=== PATIENT | female | born 1960 ===

== ENCOUNTER → 2017-12-07 | Outpatient (CLI) | payer OTHER ==
--- NOTE | 2017-12-07 15:55 | XR ---
EXAMINATION TYPE: XR chest 2V DATE OF EXAM: 12/07/2017 COMPARISON: 05/06/2016 HISTORY: Shortness of breath TECHNIQUE: Frontal and lateral views of the chest are obtained. FINDINGS: Scattered senescent parenchymal changes noted. Hyperinflation compatible with COPD. No evidence for infiltrate. No evidence for atelectasis. Heart size is stable. Mediastinal structures are stable and grossly unremarkable. No evidence for hilar prominence. Degenerative changes dorsal spine. Chronic loss of height involving a lower thoracic/upper lumbar seg ments. IMPRESSION: 1. No evidence for acute pulmonary disease.
--- NOTE | 2017-12-07 16:18 | CT ---
EXAMINATION TYPE: CT brain wo con DATE OF EXAM: 12/07/2017 COMPARISON: NONE HISTORY: Dizziness with near syncope. CT DLP: [address] of the brain was performed. The ventricles, basal cisterns and sulci overlying the cerebral convexities demonstrate mild enlargem ent. There is no evidence for intracranial hemorrhage or sulcal effacement. There is decreased attenuation about the periventricular white matter and deep white matter of both c erebral hemispheres, compatible with chronic small vessel ischemia. Differential diagnosis does inclu de demyelination. No mass effects are seen.No midline shift. Osseous calvarium is intact. Mild mucosal thickening maxillary sinuses. If symptoms persist consider MRI. IMPRESSION: 1. Age related atrophic and chronic small vessel ischemic change without acute intracranial process s een at this time.
--- NOTE | 2017-12-08 07:15 | US ---
EXAMINATION TYPE: US carotid duplex BILAT DATE OF EXAM: 12/07/2017 COMPARISON: NONE CLINICAL HISTORY: R55 Syncope,R07.89 Atypical chest pain; smoker x 45 years EXAM MEASUREMENTS: RIGHT: Peak Systolic Velocity (PSV) cm/sec ----- Right CCA: 64.5 ----- Right ICA: 85.5 ----- Right ECA: 41.4 ICA/CCA ratio: 1.3 RIGHT: End Diastole cm/sec ----- Right CCA: 31.5 ----- Right ICA: 43.6 ----- Right ECA: 16.1 LEFT: Peak Systolic Velocity (PSV) cm/sec ----- Left CCA: 52.2 ----- Left ICA: 64.8 ----- Left ECA: 53.3 ICA/CCA ratio: 1.2 LEFT: End Diastole cm/sec ----- Left CCA: 24.8 ----- Left ICA: 36.4 ----- Left ECA: 19.6 VERTEBRALS (direction of flow): Right Vertebral: Antegrade Left Vertebral: Antegrade Rhythm: Normal Very mild intimal wall thickening is noted at bilateral carotid bifurcation and PSV is wnl bilaterall y. IMPRESSION: Mild degree of grayscale atheromatous plaquing with no sonographically evident hemodynam ically significant stenosis within either visualized carotid arterial system.
== END | disposition home or self-care (01) ==
LOC: RADCTMAIN 15:33
PROVIDERS: ATTEND Family Medicine
DX: G31.9 Degenerative disease of nervous system, unspecified (principal); I67.82 Cerebral ischemia; J44.0 Chronic obstructive pulmonary disease with (acute) lower respiratory infection; I65.23 Occlusion and stenosis of bilateral carotid arteries
CPT/HCPCS: 70450; 71046; 93880

== ENCOUNTER → 2018-02-02 | Outpatient (CLI) | payer OTHER ==
--- NOTE | 2018-02-02 16:58 | BD ---
EXAMINATION TYPE: Axial Bone Density DATE OF EXAM: 02/02/2018 COMPARISON: 02.02.2016 CLINICAL HISTORY: 57 YR OLD FEMALE.....ICD-10 CODE: M81.0 OSTEOPOROSIS Height: 65.2 Weight: 122 FRAX RISK QUESTIONS: History of Fracture in Adulthood: YES, SPINE Secondary Osteoporosis: YES 3. Menopause before 45: YES AT AGE 34 Current Tobacco Use: YES RISK FACTORS HISTORY OF: Spine Fracture: COMPRESSION FX TO L1 >50 YRS OLD History of Wrist Fracture: RT FOREARM...UNDER AGE 49 Family History of Osteoporosis: YES, HER MOTHER W/O FX Active: YES Diet low in dairy products/other sources of calcium: NO Postmenopausal woman: TOTAL HYST AT 34 YRS OLD Lost more than 2 inches in height since high school: YES MEDICATIONS: Prednisone or other steroids: INHALERS ON AND OFF Osteoporosis Medications: RECLAST INFUSIONS X2 Additional Medications: CALCIUM WITH D, XANAX, Additional History: EARLY MENOPAUSE EXAM MEASUREMENTS: Bone mineral densitometry was performed using the PacerPro System. Bone mineral density about the R hip (g/cm2): 0.876 Bone mineral density about the L hip (g/cm2): 0.890 T Score values are as follows: -----R Neck: -1.9 -----L Neck: -2.1 -----R Total: -1.0 -----L Total: -0.9 Bone mineral density has: Increased 2.9% since study of: 02.02.2016 Bone mineral density about the L Wrist (g/cm2): 0.509 T Score values are as follows: -----Dist. R+U: -1.8 -----Prox. R+U: -1.4 -----Radius total: -2.6 Bone mineral density FIRST BONE DENSITY OF PTs LT WRIST FRAX%s: THERE IS A 15.1% CHANCE OF A MAJOR OSTEOPOROTIC FX AND A 3.8% FOR HIP FX.....PROBABILITY O F FX IN 10 YRS TIME IMPRESSION: Osteoporosis (T Score less than -2.5). There is increased fracture risk and therapy is usually indicated based on age. Re-Screen 1-2 years. NOTE: T-SCORE=SD OF THE YOUNG ADULT MEAN.
== END | disposition home or self-care (01) ==
LOC: RADBDWWP 12:14
PROVIDERS: ATTEND Family Medicine
DX: M81.0 Age-related osteoporosis without current pathological fracture (principal)
CPT/HCPCS: 77080

== ENCOUNTER → 2018-04-25 | Outpatient (CLI) | payer OTHER ==
--- NOTE | 2018-04-26 12:32 | MM ---
Reason for exam: screening (asymptomatic). Last mammogram was performed 3 years and 3 months ago. History: Patient is postmenopausal, has history of other cancer at age 37, and is nulliparous. Physical Findings: A clinical breast exam by your physician is recommended on an annual basis and results should be correlated with mammographic findings. MG Screening Mammo w CAD Bilateral CC and MLO view(s) were taken. Prior study comparison: January 27, 2015, bilateral MG screening mammo w CAD. November 14, 2013, bilateral MG screening mammo w CAD. The breast tissue is heterogeneously dense. This may lower the sensitivity of mammography. No suspicious abnormality. No significant changes when compared with prior studies. ASSESSMENT: Negative, BI-RAD 1 RECOMMENDATION: Routine screening mammogram of both breasts in 1 year.
== END | disposition home or self-care (01) ==
LOC: RADMAMWWP 12:39
PROVIDERS: ATTEND Family Medicine
DX: Z12.31 Encounter for screening mammogram for malignant neoplasm of breast (principal)
CPT/HCPCS: 77067

== ENCOUNTER → 2018-05-30 | Outpatient (CLI) | payer OTHER ==
[~2018-05-30] MED LIST: SODIUM CHLORIDE 0.9% 500 ML 500 ML in EMPTY BAG 1 BAG IV PRN; ZOLEDRONIC ACID 5 MG in SODIUM CHLORIDE 0.9% 100 ML IV NR
[2018-05-30 14:33] VITALS: BP 109/76; PULSE 76; RESP 16; TEMP 98
== END ==
LOC: PROCWHC3 14:10
PROVIDERS: ATTEND Family Medicine
DX: M81.0 Age-related osteoporosis without current pathological fracture (principal)
CPT/HCPCS: 96365; J3489

== ENCOUNTER → 2018-06-12 | Outpatient (CLI) | payer OTHER ==
--- NOTE | 2018-06-12 15:56 | XR ---
EXAMINATION TYPE: XR lumbosacral spine min 4V DATE OF EXAM: 06/12/2018 CLINICAL HISTORY: Pain 1 week after lifting injury TECHNIQUE: Frontal, lateral, and oblique images of the lumbar spine are obtained. COMPARISON: 03/20/2014 FINDINGS: There are 5 lumbar type vertebral bodies identified. The lumbar spine shows satisfactory alignment without evidence of acute fracture or spondylolisthesis. There is a compression deformity o f L1 with approximately 50% loss of anterior vertebral body height. No posterior wall displacement is evident. This appears old. Vertebral disk space heights are within normal limits. The oblique imag es appear within normal limits. No spondylolytic defects are evident. Spondylolysis of L5 3 and L4 is present. IMPRESSION: 1. No acute osseous abnormality lumbar spine there is an old L1 compression deformity which is stable from 2013.
== END | disposition home or self-care (01) ==
LOC: RADXRMAIN 15:24
PROVIDERS: ATTEND Family Medicine
DX: M43.8X6 Other specified deforming dorsopathies, lumbar region (principal); M54.5 Low back pain
CPT/HCPCS: 72110

== ENCOUNTER → 2019-06-03 | Outpatient (CLI) | payer OTHER ==
--- NOTE | 2019-06-04 11:14 | MM ---
Reason for exam: screening (asymptomatic). Last mammogram was performed 1 year and 1 month ago. History: Patient is postmenopausal, has history of other cancer at age 37, and is nulliparous. Physical Findings: A clinical breast exam by your physician is recommended on an annual basis and results should be correlated with mammographic findings. MG Screening Mammo w CAD Bilateral CC and MLO view(s) were taken. Prior study comparison: April 25, 2018, bilateral MG screening mammo w CAD. January 27, 2015, bilateral MG screening mammo w CAD. The breast tissue is heterogeneously dense. This may lower the sensitivity of mammography. There are benign appearing round calcifications in the right breast. There is no discrete abnormality. ASSESSMENT: Benign, BI-RAD 2 RECOMMENDATION: Routine screening mammogram of both breasts in 1 year.
== END | disposition home or self-care (01) ==
LOC: RADMAMWWP 12:33
PROVIDERS: ATTEND Family Medicine
DX: Z12.31 Encounter for screening mammogram for malignant neoplasm of breast (principal)
CPT/HCPCS: 77067

== ENCOUNTER → 2019-12-06 | Outpatient (CLI) | payer OTHER ==
--- NOTE | 2019-12-06 12:30 | XR ---
EXAMINATION TYPE: XR chest 2V DATE OF EXAM: 12/06/2019 COMPARISON: Chest x-ray December 07, 2017. CT chest November 05, 2013. HISTORY: Fall injury with atypical chest pain. TECHNIQUE: Frontal and lateral views of the chest are obtained. FINDINGS: There is underlying emphysematous change without suspicious focal air space opacity, pleur al effusion, or pneumothorax seen. The cardiac silhouette size remains within normal limits. Mild to moderate multilevel spurring in the mid to lower thoracic spine is redemonstrated. Mild chronic comp ression type fracture L1 level redemonstrated. IMPRESSION: Chronic emphysematous change without acute pulmonary process.
== END | disposition home or self-care (01) ==
LOC: RADXRMAIN 12:08
PROVIDERS: ATTEND Family Medicine
DX: Z00.00 Encounter for general adult medical examination without abnormal findings (principal); J43.9 Emphysema, unspecified; R07.89 Other chest pain
CPT/HCPCS: 71046

== ENCOUNTER → 2019-12-27 | Outpatient (CLI) | payer OTHER ==
--- NOTE | 2019-12-27 14:18 | US ---
EXAMINATION TYPE: US carotid duplex BILAT DATE OF EXAM: 12/27/2019 COMPARISON: US 12/07/2017 CLINICAL HISTORY: R55 Syncope. EXAM MEASUREMENTS: RIGHT: Peak Systolic Velocity (PSV) cm/sec ----- Right CCA: 77.5 ----- Right ICA: 107 ----- Right ECA: 53.0 ICA/CCA ratio: 1.3 RIGHT: End Diastole cm/sec ----- Right CCA: 30.6 ----- Right ICA: 36.7 ----- Right ECA: 53.0 LEFT: Peak Systolic Velocity (PSV) cm/sec ----- Left CCA: 85.6 ----- Left ICA: 80.2 ----- Left ECA: 76.8 ICA/CCA ratio: 0.9 LEFT: End Diastole cm/sec ----- Left CCA: 33.3 ----- Left ICA: 36.0 ----- Left ECA: 20.4 VERTEBRALS (direction of flow): Right Vertebral: Antegrade Left Vertebral: Antegrade Rhythm: Normal Minimal amount of plaque visualized bilaterally. No elevated velocities, no significant stenosis. IMPRESSION: 1. No suspicious flow-limiting stenosis by velocity measurements. Criteria for Assigning % of Stenosis / Diameter reduction (Estimation based on the indirect measurements of the internal carotid artery velocities (ICA PSV). 1. Normal (no stenosis)=ICA PSV < 125 cm/s: ratio < 2.0: ICA EDV<40 cm/s. 2. Less than 50% stenosis=ICA PSV < 125 cm/s: ratio < 2.0: ICA EDV<40 cm/s. 3. 50 to 69% stenosis=ICA PSV of 125 to 230 cm/s: ration 2.0 ? 4.0: ICA EDV 40-100 cm/s. 4. Greater than 70% stenosis to near occlusion= ICA PSV > 230 cm/s: ratio > 4.0: ICA EDV > 100 cm/s. 5. Near occlusion= ICA PSV velocities may be low or undetectable: variable ratio and ICA EDV. 6. Total occlusion=unable to detect flow.
== END | disposition home or self-care (01) ==
LOC: RADUSWWP 12:56
PROVIDERS: ATTEND Family Medicine
DX: R55 Syncope and collapse (principal); Z88.8 Allergy status to other drugs, medicaments and biological substances
CPT/HCPCS: 93880

== ENCOUNTER → 2020-01-01 | Outpatient (CLI) | payer OTHER ==
--- NOTE | 2020-01-01 16:00 | ECHOF ---
Referral Reason:R07.9 atypical chest pain MEASUREMENTS -------- HEIGHT: 167.6 cm WEIGHT: 54.4 kg BP: IVSd: 0.9 cm (0.6 - 1.1) LVIDd: 2.7 cm (3.9 - 5.3) LVPWd: 0.9 cm (0.6 - 1.1) IVSs: 1.2 cm LVIDs: 1.8 cm LVPWs: 1.3 cm LAESV Index (A-L): 12.12 ml/m Ao Diam: 3.2 cm (2.0 - 3.7) AV Cusp: 1.7 cm (1.5 - 2.6) MV E Ja: 0.95 m/s MV DecT: 216 ms MV A Ja: 0.56 m/s MV E/A Ratio: 1.69 RAP: 5.00 mmHg RVSP: 16.76 mmHg FINDINGS -------- Sinus rhythm. This was a technically difficult study with suboptimal parasternal views. The left ventricular size is normal. Left ventricular wall thickness is normal. Overall left vent ricular systolic function is normal with, an EF between 55 - 60 %. The diastolic filling pattern is normal for the age of the patient 11.19. The right ventricle is normal in size. Normal LA size by volume 22+/-6 ml/m2. The right atrial size is normal. Interatrial and interventricular septum intact. The aortic valve was not well visualized. There is no evidence of aortic regurgitation. There is no evidence of aortic stenosis. There is trace mitral regurgitation. Trace tricuspid regurgitation present. There is no evidence of pulmonary hypertension. The right ventricular systolic pressure, as measured by Doppler, is 16.76mmHg. Trace/mild (physiologic) pulmonic regurgitation. The aortic root size is normal. Normal inferior vena cava with normal inspiratory collapse consistent with estimated right atrial pre ssure of 5 mmHg. There is no pericardial effusion. CONCLUSIONS -------- 1. Sinus rhythm. 2. This was a technically difficult study with suboptimal parasternal views. 3. The left ventricular size is normal. 4. Left ventricular wall thickness is normal. 5. Overall left ventricular systolic function is normal with, an EF between 55 - 60 %. 6. The diastolic filling pattern is normal for the age of the patient 11.19 7. The right ventricle is normal in size. 8. Normal LA size by volume 22+/-6 ml/m2. 9. The right atrial size is normal. 10. Interatrial and interventricular septum intact. 11. The aortic valve was not well visualized. 12. There is no evidence of aortic regurgitation. 13. There is no evidence of aortic stenosis. 14. There is trace mitral regurgitation. 15. Trace tricuspid regurgitation present. 16. There is no evidence of pulmonary hypertension. 17. The right ventricular systolic pressure, as measured by Doppler, is 16.76mmHg. 18. Trace/mild (physiologic) pulmonic regurgitation. 19. The aortic root size is normal. 20. Normal inferior vena cava with normal inspiratory collapse consistent with estimated right atrial pressure of 5 mmHg. 21. There is no pericardial effusion. PROVER: Mary Quinn RDCS
--- NOTE | 2020-01-01 16:34 | EST ---
EXERCISE STRESS AGE: 59 SEX: Female HT: 5'6" WT: 120 lbs. PROTOCOL: Lito STAGE: 3 DURATION OF EXERCISE: 7:30 HEART RATE REST: 68 BLOOD PRESSURE REST: 127/77 MAXIMUM HEART RATE ACHIEVED: 144 MAXIMUM BLOOD PRESSURE: 194/100 85% MPHR: 136 100% MPHR: 160 METS: 9.1 INDICATIONS: Chest pain. CLINICAL INFORMATION: STRESS DATA: Heart rate 68, pressure 127/77 mmHg. Baseline EKG showed sinus mechanism. The patient exercised on the treadmill according to Lito protocol for a total of 7 minutes and 30 seconds and achieved 9.1 METS. Max heart rate was 144, which is about 90% of maximum predicted heart rate. Maximum blood pressure was 194/100 mmHg. Clinically the patient did not have any symptoms of chest pain or chest discomfort and the EKG did not show any significant ST or T-wave abnormalities concerning for ischemia. CONCLUSION: 1. Good exercise tolerance. 2. Normal EKG in response to exercise. MMODL / IJN: [id number] /
== END | disposition home or self-care (01) ==
LOC: RADECHMAIN 08:31
PROVIDERS: ATTEND Family Medicine
DX: I08.1 Rheumatic disorders of both mitral and tricuspid valves (principal); R07.9 Chest pain, unspecified; Z88.8 Allergy status to other drugs, medicaments and biological substances
CPT/HCPCS: 93017; 93306

== ENCOUNTER → 2020-08-14 | Outpatient (CLI) | payer OTHER ==
--- NOTE | 2020-08-18 13:27 | MM ---
Reason for exam: screening (asymptomatic). Last mammogram was performed 1 year and 2 months ago. History: Patient is postmenopausal, has history of other cancer at age 37, and is nulliparous. Physical Findings: A clinical breast exam by your physician is recommended on an annual basis and results should be correlated with mammographic findings. MG Screening Mammo w CAD Bilateral CC and MLO view(s) were taken. Prior study comparison: June 03, 2019, bilateral MG screening mammo w CAD. April 25, 2018, bilateral MG screening mammo w CAD. The breast tissue is heterogeneously dense. This may lower the sensitivity of mammography. Benign oil cyst calcification on the right breast. No significant changes when compared with prior studies. ASSESSMENT: Benign, BI-RAD 2 RECOMMENDATION: Routine screening mammogram of both breasts in 1 year.
== END | disposition home or self-care (01) ==
LOC: RADMAMWWP 14:51
PROVIDERS: ATTEND Family Medicine
DX: Z12.31 Encounter for screening mammogram for malignant neoplasm of breast (principal)
CPT/HCPCS: 77067

== ENCOUNTER → 2021-08-13 | Outpatient (CLI) | payer OTHER ==
[2021-08-15 11:23] LABS: Coronavirus SARS CoV-2 Not Detected (Not Detected)
== END | disposition home or self-care (01) ==
LOC: LABPAT 10:33
PROVIDERS: ATTEND Surgery Plastic and Reconstructive Surgery
DX: Z20.822 Contact with and (suspected) exposure to COVID-19 (principal)
CPT/HCPCS: U0003; C9803; U0005

== ENCOUNTER 2021-08-18 08:53 | Day surgery (SDC) | payer OTHER ==
[2021-08-13 15:32] VITALS: BMI 18.6
[2021-08-18 09:15] VITALS: RESP 18; TEMP 98.1
--- NOTE | 2021-08-18 09:29 | P.GSHP ---
History of Present Illness H&P Date: 08/18/21 CHIEF COMPLAINT: Colon screen HISTORY OF PRESENT ILLNESS: The patient is a 60-year-old female who presents for colon screen. Lower endoscopy was offered for further evaluation and management. PAST MEDICAL HISTORY: Please see list. PAST SURGICAL HISTORY: Please see list. MEDICATIONS: Please see list. ALLERGIES: Please see list. SOCIAL HISTORY: No illicit drug use FAMILY HISTORY: No reports of Crohn disease or ulcerative colitis. REVIEW OF ORGAN SYSTEMS: CONSTITUTIONAL: No reports of fevers or chills. PHYSICAL EXAM: VITAL SIGNS: Stable GENERAL: Well-developed pleasant in no acute distress. HEENT: No scleral icterus. Extraocular movements grossly intact. Moist buccal mucosa. NECK: Supple without lymphadenopathy. CHEST: Unlabored respirations. Equal bilateral excursions. CARDIOVASCULAR: Regular rate and rhythm. Distal 2+ pulses. ABDOMEN: Soft, nontender, nondistended. MUSCULOSKELETAL: No clubbing, cyanosis, or edema. ASSESSMENT: 1. Colon screen. PLAN: 1. Recommend proceeding with a lower endoscopy Past Medical History Past Medical History: Cancer, COPD, Osteoarthritis (OA) Additional Past Medical History / Comment(s): OSTEOPOROSIS. RIGHT ARM GANGRENE YEARS AGO FROM "TIGHT CAST" AFTER COMPOUND FRACTURE. frequent "upset stomach" ,hx H PYLORI, hx cervical cancer History of Any Multi-Drug Resistant Organisms: None Reported Past Surgical History: Hysterectomy, Orthopedic Surgery Additional Past Surgical History / Comment(s): BACK INJECTIONS., MULT RIGHT FOREARM SURGERIES, rt cataract Past Anesthesia/Blood Transfusion Reactions: No Reported Reaction Smoking Status: Current every day smoker - Past Family History Mother Family Medical History: No Reported History Medications and Allergies Home Medications Medication Instructions Recorded Confirmed Type ALPRAZolam [Xanax] 0.25 mg PO HS PRN 08/13/21 08/18/21 History HYDROcodone/APAP 5-325MG [[place] 1 tab PO DAILY PRN 08/13/21 08/18/21 History 5-325] Vit C/E/Zn/Coppr/Lutein/Zeaxan 2 each PO DAILY 08/13/21 08/18/21 History [Preservision Areds 2 Softgel] Vitamin C/Biotin [Hair, Skin and 1 tab PO DAILY 08/13/21 08/18/21 History Nails Chew] Allergies Allergy/AdvReac Type Severity Reaction Status Date / Time codeine AdvReac Nausea Verified 08/18/21 09:18 Surgical - Exam Vital Signs Temp Pulse Resp BP Pulse Ox 98.1 F 78 18 122/72 97 08/18/21 09:12 08/18/21 09:12 08/18/21 09:12 08/18/21 09:12 08/18/21 09:12
[2021-08-18] MEDS ORDERED: LACTATED RINGERS 1,000 ML IV ONE (09:31)
[2021-08-18] MEDS ORDERED: LIDOCAINE 1% (10MG/ML) FOR IV START INTRADERMA ONE (09:31)
[2021-08-18] MEDS ORDERED: PROPOFOL 10 MG/ML 20 ML VIAL IV ONE (10:14)
[2021-08-18] MEDS ORDERED: LIDOCAINE 1% INJ 10MG/ML (20 ML MDV) ONE (10:14)
--- NOTE | 2021-08-18 10:42 | P.PCN ---
Date of Procedure: 08/18/21 Description of Procedure: PREOPERATIVE DIAGNOSIS: Colonoscopy screening POSTOPERATIVE DIAGNOSIS: Tubular adenoma sigmoid colon, 6 Sigmoid diverticulosis OPERATION: Colonoscopy to the ileocecal valve and appendiceal orifice, cecum Colonoscopy with cold forceps biopsy SURGEON: Dinorah Calderon MD. ANESTHESIA: MAC. INDICATIONS: The patient is an 60-year-old female who presents for colonoscopy screening. Benefits and risks were described and informed consent was obtained. DESCRIPTION OF PROCEDURE: The patient had undergone Sutab prep. The patient had been brought into the operating room and laid in the left lateral decubitus position. After adequate intravenous sedation, the rectum was examined with 2% lidocaine jelly. External hemorrhoids were encountered. The rectal tone was within normal limits. No lesions were palpated in the rectal vault. An Olympus colonoscope was advanced until the cecum, ileocecal valve and appendiceal orifice were clearly viewed. The prep was good. Sigmoid diverticulosis was encountered. The sigmoid colon was redundant requiring abdominal wall pressure. Colonic polyps were found and removed. No evidence of focal colitis was found. Retroflexion of the scope demonstrated grade 1 internal hemorrhoids without active bleeding or inflammation. The colon was desufflated. The patient had tolerated the procedure well. Withdrawal time was over 6 minutes. FINDINGS: Aronchick preparation quality scale 2 (1-5) Internal hemorrhoids, grade 1 No external hemorrhoids No arteriovenous malformations. Sigmoid diverticulosis Removal of 6 polyps: - Cold forceps biopsy at 15 to 20 cm from the anal verge 6, 3 to 6 mm polyps, sigmoid colon No focal colitis. RECOMMENDATIONS: Given severity of tubular adenomas, recommend repeat colonoscopy 2 years, 2023 Plan - Discharge Summary New Discharge Prescriptions: Continue HYDROcodone/APAP 5-325MG [[place] 5-325] 1 tab PO DAILY PRN PRN Reason: Pain ALPRAZolam [Xanax] 0.25 mg PO HS PRN PRN Reason: sleep Vit C/E/Zn/Coppr/Lutein/Zeaxan [Preservision Areds 2 Softgel] 2 each PO DAILY Vitamin C/Biotin [Hair, Skin and Nails Chew] 1 tab PO DAILY Discharge Medication List ALPRAZolam [Xanax] 0.25 mg PO HS PRN 08/13/21 [History] HYDROcodone/APAP 5-325MG [[place] 5-325] 1 tab PO DAILY PRN 08/13/21 [History] Vit C/E/Zn/Coppr/Lutein/Zeaxan [Preservision Areds 2 Softgel] 2 each PO DAILY 08/13/21 [History] Vitamin C/Biotin [Hair, Skin and Nails Chew] 1 tab PO DAILY 08/13/21 [History] Follow up Appointment(s)/Referral(s): Dinorah Calderon MD [STAFF PHYSICIAN] - As Needed Patient Instructions/Handouts: Diverticulosis Diet (GEN), Diverticulosis (DC), Colorectal Polyps (DC), *Surgery [facility] - (Anesthesia) Endoscopy Discharge Instructions Activity/Diet/Wound Care/Special Instructions: Repeat colonoscopy in 2 years, 2023 Discharge Disposition: HOME SELF-CARE
[2021-08-18 11:08] VITALS: BP 111/67; PULSE 71
== END 2021-08-18 11:11 | disposition home or self-care (01) ==
LOC: ORWHC2ENDO 08:53
PROVIDERS: ATTEND Surgery Plastic and Reconstructive Surgery
DX: Z12.11 Encounter for screening for malignant neoplasm of colon (principal); K63.5 Polyp of colon; K57.30 Diverticulosis of large intestine without perforation or abscess without bleeding; K64.4 Residual hemorrhoidal skin tags; Q43.8 Other specified congenital malformations of intestine; K64.0 First degree hemorrhoids; J44.9 Chronic obstructive pulmonary disease, unspecified; M19.90 Unspecified osteoarthritis, unspecified site; M81.0 Age-related osteoporosis without current pathological fracture; Z85.41 Personal history of malignant neoplasm of cervix uteri; Z90.710 Acquired absence of both cervix and uterus; Z98.41 Cataract extraction status, right eye; Z98.890 Other specified postprocedural states; F17.200 Nicotine dependence, unspecified, uncomplicated; F41.9 Anxiety disorder, unspecified; Z97.2 Presence of dental prosthetic device (complete) (partial); Z79.899 Other long term (current) drug therapy; Z88.5 Allergy status to narcotic agent
CPT/HCPCS: 88305; 45380; J2001; J2704

== ENCOUNTER → 2022-03-03 | Outpatient (CLI) | payer BC ==
--- NOTE | 2022-03-04 15:41 | BD ---
EXAMINATION TYPE: Axial Bone Density DATE OF EXAM: 03/03/2022 COMPARISON: NONE CLINICAL HISTORY: 61 years year old Female. ICD-10 CODE: M81.0 osteoporosis Height: 65 Weight: 117.3 FRAX RISK QUESTIONS: Alcohol (3 or more units per day): YES Family History (Parent hip fracture): FATHER Glucocorticoids (More than 3mos): NO History of Fracture in Adulthood: LUMBAR SPINE Secondary Osteoporosis: 1. Type 1 Diabetes: NO 2. Hyperthyroidism: NO 3. Menopause before 45: YES 4. Malnutrition: NO 5. Chronic liver disease: NO Rheumatoid Arthritis: NO Current Tobacco Use: YES RISK FACTORS HISTORY OF: Hip Fracture (Right/Left): NO Spine Fracture: YES L1 When: 2014 History of Wrist Fracture: NO Surgery to Spine/Hip(right/left)/Wrist (right/left): NO Family History of Osteoporosis: MOTHER Active: YES Diet low in dairy products/other sources of calcium: NO Postmenopausal woman: YES Take estrogen and/or progesterone medications: NO Lost more than 2 inches in height since high school: YES Frequent falls: NO Poor Health: NO Hyperparathyroidism: NO Adrenal Insufficiency: NO MEDICATIONS: Prednisone or other steroids: NO Thyroid Medications: NO Osteoporosis Medications: NO Additional Medications: BIO TEN, EXAM MEASUREMENTS: Bone mineral density about the R hip (g/cm2): 0.820 Bone mineral density about the L hip (g/cm2): 0.799 T Score values are as follows: -----R Neck: -1.6 -----L Neck: -1.7 -----R Total: -1.0 -----L Total: -0.9 Bone mineral density has: INCREASED 0.9 % since study of: 02/02/2018 Bone mineral density about the L Wrist (g/cm2): 0.355 T Score values are as follows: -----Dist. R+U: -2.4 -----Prox. R+U: -1.5 -----Radius total: -2.3 Bone mineral density has: DECREASED 0.4 % since study of: 02/02/2018 FRAX%s: The graph provided illustrates a 16.8% chance for a major osteoporotic fx and a 4.3% chance f or the hips probability for fx in 10 years time. IMPRESSION: Osteopenia (T Score between -2.5 and -1). There is slightly increased risk of fracture and the patient may be considered for treatment. Re-Screen 2-5 years. NOTE: T-SCORE=SD OF THE YOUNG ADULT MEAN.
== END | disposition home or self-care (01) ==
LOC: RADBDWWP 15:06
PROVIDERS: ATTEND Family Medicine
DX: M85.89 Other specified disorders of bone density and structure, multiple sites (principal); Z78.0 Asymptomatic menopausal state
CPT/HCPCS: 77080

== ENCOUNTER 2022-05-09 08:15 | Day surgery (SDC) | payer BC ==
[2022-05-05 11:11] VITALS: BMI 19.3
--- NOTE | 2022-05-09 05:02 | P.GSHP ---
History of Present Illness H&P Date: 05/09/22 CHIEF COMPLAINT: GERD HISTORY OF PRESENT ILLNESS: The patient is a 61-year-old female who presents reports gastroesophageal reflux disease. Upper endoscopy was offered for further evaluation and management. PAST MEDICAL HISTORY: Please see list. PAST SURGICAL HISTORY: Please see list. MEDICATIONS: Please see list. ALLERGIES: Please see list. SOCIAL HISTORY: No illicit drug use FAMILY HISTORY: No reports of Crohn disease or ulcerative colitis. REVIEW OF ORGAN SYSTEMS: CONSTITUTIONAL: No reports of fevers or chills. GI: Denies any blood in stools or constipation. PHYSICAL EXAM: VITAL SIGNS: Stable GENERAL: Well-developed and pleasant in no acute distress. HEENT: No scleral icterus. Extraocular movements grossly intact. Moist buccal mucosa. NECK: Supple without lymphadenopathy. CHEST: Unlabored respirations. Equal bilateral excursions. CARDIOVASCULAR: Regular rate and rhythm. Distal 2+ pulses. ABDOMEN: Soft, nondistended. MUSCULOSKELETAL: No clubbing, cyanosis, or edema. ASSESSMENT: 1. Gastroesophageal reflux disease PLAN: 1. Recommend proceeding with an upper endoscopy Past Medical History Additional Past Medical History / Comment(s): having "alot of stomach issues in am",OSTEOPOROSIS. RIGHT ARM GANGRENE YEARS AGO FROM "TIGHT CAST" AFTER COMPOUND FRACTURE. H PYLORI,diverticulosis,6 colon polyps,back fx History of Any Multi-Drug Resistant Organisms: None Reported Past Surgical History: Hysterectomy, Orthopedic Surgery Additional Past Surgical History / Comment(s): BACK INJECTIONS. at ages 10-14 MULT RIGHT FOREARM SURGERIES w/ skin grafts(greater than 50 surgeries) w/ nerve transplant Past Anesthesia/Blood Transfusion Reactions: No Reported Reaction Smoking Status: Current every day smoker - Past Family History Mother Family Medical History: No Reported History Medications and Allergies Home Medications Medication Instructions Recorded Confirmed Type ALPRAZolam [Xanax] 0.125 mg PO DAILY PRN 08/13/21 05/05/22 History HYDROcodone/APAP 5-325MG [[place] 1 tab PO DAILY PRN 08/13/21 05/05/22 History 5-325] Vit C/E/Zn/Coppr/Lutein/Zeaxan 2 each PO DAILY 08/13/21 05/05/22 History [Preservision Areds 2 Softgel] Vitamin C/Biotin [Hair, Skin and 1 tab PO DAILY 08/13/21 05/05/22 History Nails Chew] Allergies Allergy/AdvReac Type Severity Reaction Status Date / Time codeine AdvReac Nausea Verified 05/05/22 11:00
[~2022-05-09 08:15] MED LIST changes: +LACTATED RINGERS 1,000 ML IV SCH; -SODIUM CHLORIDE 0.9% 500 ML 500 ML in EMPTY BAG 1 BAG IV PRN; -ZOLEDRONIC ACID 5 MG in SODIUM CHLORIDE 0.9% 100 ML IV NR
[2022-05-09 09:06] VITALS: TEMP 97
[2022-05-09] MEDS ORDERED: PROPOFOL 10 MG/ML 20 ML VIAL IV ONE (09:06)
[2022-05-09 09:24] VITALS: RESP 18
--- NOTE | 2022-05-09 09:24 | P.PCN ---
Date of Procedure: 05/09/22 Description of Procedure: PREOPERATIVE DIAGNOSIS: Gastroesophageal reflux disease. Epigastric abdominal pain POSTOPERATIVE DIAGNOSIS: Gastroesophageal reflux disease. Gastritis. Diaphragmatic hiatal hernia Duodenal polyp Gastric ulcer OPERATION: Esophagogastroduodenoscopy with biopsies along antrum. SURGEON: Dinorah Calderon MD ANESTHESIA: MAC. INDICATIONS: The patient is a 61-year-old female who presents with reflux disease. Benefits and risks of the procedure were described. Informed consent was obtained. DESCRIPTION: The patient was brought into the endoscopy suite and laid in the left lateral decubitus position. An Olympus gastroscope was passed along the posterior oropharynx down to the distal esophagus where the squamocolumnar junction was encountered at 40 cm from the incisors. The stomach was entered and no bile reflux was found. Additional findings are listed below. Biopsies with cold forceps were obtained of the antrum. The first through third portion of the duodenum was examined. Retroflexion of the scope confirmed Hill grade 4 lower esophageal valve. The squamocolumnar junction demonstrated LA grade B erosive esophagitis. The stomach was desufflated. The patient tolerated the procedure well. FINDINGS: Squamocolumnar junction 40 cm from the incisors. Diaphragmatic hiatus at 40 cm. Hill grade 4 lower esophageal valve. LA grade B erosive esophagitis. Duodenal polyp, 1 cm at second portion the biopsies obtained Chronic gastritis with gastric ulcer, nonbleeding RECOMMENDATIONS: Upper endoscopy as needed. Plan - Discharge Summary Discharge Rx Participant: No New Discharge Prescriptions: Continue HYDROcodone/APAP 5-325MG [Galva 5-325] 1 tab PO DAILY PRN PRN Reason: Pain ALPRAZolam [Xanax] 0.125 mg PO DAILY PRN PRN Reason: sleep Vit C/E/Zn/Coppr/Lutein/Zeaxan [Preservision Areds 2 Softgel] 2 each PO DAILY Vitamin C/Biotin [Hair, Skin and Nails Chew] 1 tab PO DAILY Discharge Medication List ALPRAZolam [Xanax] 0.125 mg PO DAILY PRN 08/13/21 [History] HYDROcodone/APAP 5-325MG [Galva 5-325] 1 tab PO DAILY PRN 08/13/21 [History] Vit C/E/Zn/Coppr/Lutein/Zeaxan [Preservision Areds 2 Softgel] 2 each PO DAILY 08/13/21 [History] Vitamin C/Biotin [Hair, Skin and Nails Chew] 1 tab PO DAILY 08/13/21 [History] Follow up Appointment(s)/Referral(s): Dinorah Calderon MD [STAFF PHYSICIAN] - 05/17/22 Patient Instructions/Handouts: Hiatal Hernia (DC) Discharge Disposition: HOME SELF-CARE
[2022-05-09 09:50] VITALS: BP 92/57; PULSE 72
== END 2022-05-09 10:00 | disposition home or self-care (01) ==
LOC: ORWHC2ENDO 08:15
PROVIDERS: ATTEND Surgery Plastic and Reconstructive Surgery
DX: K29.50 Unspecified chronic gastritis without bleeding (principal); K21.00 Gastro-esophageal reflux disease with esophagitis, without bleeding; F17.200 Nicotine dependence, unspecified, uncomplicated; K25.9 Gastric ulcer, unspecified as acute or chronic, without hemorrhage or perforation; K44.9 Diaphragmatic hernia without obstruction or gangrene; K31.A11 Gastric intestinal metaplasia without dysplasia, involving the antrum
CPT/HCPCS: 88305; 43239; J2704

== ENCOUNTER → 2022-06-08 | Outpatient (CLI) | payer BC ==
[2022-06-08 16:06] LABS: ALT 20 U/L (8-44); AST 23 U/L (13-35); African American GFR (CKD) 91.6 (60.0-200.0); Albumin 4.7 g/dL (3.8-4.9); Albumin/Globulin Ratio 2.04 (1.60-3.17); Alkaline Phosphatase 63 U/L (41-126); BUN/Creat Ratio 25.38 Ratio (12.00-20.00); Blood Urea Nitrogen 20.3 mg/dL (9.0-27.0); Carbon Dioxide 26.5 mmol/L (20.0-27.5); Chloride 104 mmol/L (96-109); Chol/HDL Ratio 2.96 Ratio; Globulin 2.3 g/dL (1.6-3.3); Glucose 98 mg/dL (70-110); LDL Cholesterol,Calculated 132.5 mg/dL (0.0-131.0); Potassium 4.2 mmol/L (3.5-5.5); Sodium 141 mmol/L (135-145)
[2022-06-08 18:17] LABS: Basophils # (A) 0.07 X 10*3/uL (0.00-0.10); Basophils % (A) 0.8 %; Eosinophils # (A) 0.53 X 10*3/uL (0.04-0.35); Eosinophils % (A) 6.3 %; HCT 43.8 % (37.2-46.3); HGB 14.8 g/dL (12.0-15.0); Immature Grans, Automated 0.2 %; Lymphocytes # (A) 3.26 X 10*3/uL (0.90-5.00); Lymphocytes % (A) 38.7 %; MCH 31.2 pg (27.0-32.0); MCHC 33.8 g/dL (32.0-37.0); MCV 92.2 fL (80.0-97.0); Mean Platelet Volume 11.1 fL (9.5-12.2); Monocytes # (A) 0.72 X 10*3/uL (0.20-1.00); Monocytes % (A) 8.5 %; NRBC Per 100 WBC 0 /100 WBCS (0.0-0.0); Neutrophils # (A) 3.83 X 10*3/uL (1.80-7.70); Neutrophils % (A) 45.5 %; Platelet Count 246 X 10*3/uL (140-440); RBC 4.75 X 10*6/uL (4.10-5.20); RDW 13.3 % (11.5-14.5); WBC 8.43 X 10*3/uL (4.50-10.00)
== END | disposition home or self-care (01) ==
LOC: LABWHC1 09:05
PROVIDERS: ATTEND Family Medicine
DX: J44.9 Chronic obstructive pulmonary disease, unspecified (principal); E55.9 Vitamin D deficiency, unspecified; E78.5 Hyperlipidemia, unspecified; R73.9 Hyperglycemia, unspecified
CPT/HCPCS: 36415; 80053; 80061; 82306; 83036; 84439; 84443; 85025; 85379

== ENCOUNTER → 2023-08-04 | Outpatient (CLI) | payer BC ==
--- NOTE | 2023-08-04 16:32 | XR ---
EXAMINATION TYPE: XR chest 2V DATE OF EXAM: 08/04/2023 COMPARISON: 12/06/2019 HISTORY: 62-year-old female J44.9 CHRONIC OBSTRUCTIVE PULMONARY DISEASE, UNSPE TECHNIQUE: Frontal and lateral views FINDINGS: The cardiomediastinal silhouette and aorta are within normal limits. Unchanged asymmetric prominence to the left main pulmonary artery. Findings may reflect underlying pulmonary arterial hypertension. T here is hyperinflation. Lungs and pleural spaces are clear. IMPRESSION: COPD. No acute process seen.
== END | disposition home or self-care (01) ==
LOC: RADXRMAIN 15:10
PROVIDERS: ATTEND Family Medicine
DX: J44.9 Chronic obstructive pulmonary disease, unspecified (principal)
CPT/HCPCS: 71046

== ENCOUNTER → 2023-08-30 | Outpatient (CLI) | payer SELFPAY ==
--- NOTE | 2023-08-30 09:21 | CT ---
EXAMINATION TYPE: CT chest w con DATE OF EXAM: 08/30/2023 COMPARISON: Radiograph to 08/04/2023 HISTORY: 62-year-old female J44.9, COPD, chest discomfort, difficulty breathing, family hx of lung ca ncer TECHNIQUE: Contiguous axial scanning of the chest after the administration of 100 mL of Isovue 300. Coronal/sagittal reconstructions performed. CT DLP: 164.1mGycm. Automatic exposure control utilized for a dose reduction. FINDINGS: Heart is normal size without pericardial effusion. Borderline ectasia ascending aorta 3.6 cm increased from 2.8 cm, previously. Conventional arch vessel branching anatomy. Mildly tortuous descending thoracic aorta. No thoracic lymphadenopathy by CT size criteria. Small 6 mm hypodense nodule right lobe of thyroid gland, questionable clinical significance. There is moderate to advanced centrilobular emphysema. Biapical pleural-parenchymal scarring. Some ad ditional strandy scarring at the right base. No consolidation or pleural effusion. Visualized upper abdomen shows no gross adenopathy. Bones: Accentuated lower thoracic kyphosis with mild to moderate degenerative disc disease. There is breathing motion causing offsets along the sternal cortex. IMPRESSION: COPD with moderate to advanced emphysema. No acute pulmonary process.
== END | disposition home or self-care (01) ==
LOC: RADCTMAIN 08:13
PROVIDERS: ATTEND Family Medicine
DX: J44.9 Chronic obstructive pulmonary disease, unspecified (principal); J43.2 Centrilobular emphysema; Z80.1 Family history of malignant neoplasm of trachea, bronchus and lung
CPT/HCPCS: 71260; Q9967

== ENCOUNTER → 2023-09-27 | Outpatient (CLI) | payer BC ==
--- NOTE | 2023-09-27 18:33 | US ---
EXAMINATION TYPE: US thyroid st tissue head/neck DATE OF EXAM: 09/27/2023 COMPARISON: CT 2023 CLINICAL INDICATION: Female, 62 years old with history of E04.1 THYROID NODULE; Nodule seen on recent CT GLAND SIZE: Right Lobe: 5.1 x 1.4 x 1.5 cm Overall Parenchyma: heterogeneous Left Lobe: 4.9 x 1.2 x 1.5 cm Overall Parenchyma: heterogeneous Isthmus Thickness: 0.3 cm NODULES RIGHT: # of nodules measured on right: 1 1. 1.0 X 0.7 x 1.0 cm, lower mid, cystic or almost completely cystic, anechoic nodule, which is wid er than tall, with smooth margins, with echogenic foci. Prior size: no previous LEFT: # of nodules measured on left: 0 ISTHMUS: # of nodules measured in the isthmus: 0 Bilateral neck scanned, no evidence of lymphadenopathy. IMPRESSION: 1. No Suspicious nodules 2017 ACR TI-RADS LEVEL: TR-RADS 1 - BENIGN: No FNA *Highest TI-RADS level nodule reported
== END | disposition home or self-care (01) ==
LOC: RADUSWWP 16:24
PROVIDERS: ATTEND Family Medicine
DX: E04.1 Nontoxic single thyroid nodule (principal)
CPT/HCPCS: 76536

== ENCOUNTER 2024-01-17 08:12 | Day surgery (SDC) | payer BC ==
[2024-01-17 08:50] VITALS: TEMP 97.9
[2024-01-17] MEDS: IV FLUID CONTINUATION 1,000 ML IV ONE (08:55)
[2024-01-17] MEDS: LACTATED RINGERS 1,000 ML IV SCH (08:55)
[2024-01-17] MEDS ORDERED: PHENYLEPHRINE-0.9% NACL SYG 1,000 MCG/10 ML SYRINGE ONE (09:12)
[2024-01-17] MEDS ORDERED: PROPOFOL 10 MG/ML 20 ML VIAL IV ONE (09:12)
--- NOTE | 2024-01-17 09:18 | P.GSHP ---
History of Present Illness H&P Date: 01/17/24 CHIEF COMPLAINT: Colon screen HISTORY OF PRESENT ILLNESS: The patient is a 63-year-old female who presents for colon screen. Lower endoscopy was offered for further evaluation and management. PAST MEDICAL HISTORY: Please see list. PAST SURGICAL HISTORY: Please see list. MEDICATIONS: Please see list. ALLERGIES: Please see list. SOCIAL HISTORY: No illicit drug use FAMILY HISTORY: No reports of Crohn disease or ulcerative colitis. REVIEW OF ORGAN SYSTEMS: CONSTITUTIONAL: No reports of fevers or chills. PHYSICAL EXAM: VITAL SIGNS: Stable GENERAL: Well-developed pleasant in no acute distress. HEENT: No scleral icterus. Extraocular movements grossly intact. Moist buccal mucosa. NECK: Supple without lymphadenopathy. CHEST: Unlabored respirations. Equal bilateral excursions. CARDIOVASCULAR: Regular rate and rhythm. Distal 2+ pulses. ABDOMEN: Soft, nontender, nondistended. MUSCULOSKELETAL: No clubbing, cyanosis, or edema. ASSESSMENT: 1. Colon screen. PLAN: 1. Recommend proceeding with a lower endoscopy Past Medical History Past Medical History: COPD, GERD/Reflux Additional Past Medical History / Comment(s): having "alot of stomach issues in am",OSTEOPOROSIS. RIGHT ARM GANGRENE YEARS AGO FROM "TIGHT CAST" AFTER COMPOUND FRACTURE. H PYLORI,diverticulosis,6 colon polyps,back fx, hiatal hernia, macular degeneration History of Any Multi-Drug Resistant Organisms: None Reported Past Surgical History: Hysterectomy, Orthopedic Surgery Additional Past Surgical History / Comment(s): BACK INJECTIONS. at ages 10-14 MULT RIGHT FOREARM SURGERIES w/ skin grafts(greater than 50 surgeries) w/ nerve transplant. cataract surgery bilateral Past Anesthesia/Blood Transfusion Reactions: No Reported Reaction Additional Past Anesthesia/Blood Transfusion Reaction / Comment(s): no blood transfusions reaction Smoking Status: Current every day smoker - Past Family History Mother Family Medical History: No Reported History Medications and Allergies Home Medications Medication Instructions Recorded Confirmed Type ALPRAZolam [Xanax] 0.125 mg PO DAILY PRN 08/13/21 01/17/24 History HYDROcodone/APAP 5-325MG [Kaplan 1 tab PO DAILY PRN 08/13/21 01/17/24 History 5-325] Vit C/E/Zn/Coppr/Lutein/Zeaxan 2 each PO DAILY 08/13/21 01/17/24 History [Preservision Areds 2 Softgel] Vitamin C/Biotin [Hair, Skin and 1 tab PO DAILY 08/13/21 01/17/24 History Nails Chew] Albuterol Inhaler [Ventolin Hfa 1 puff INHALATION TID PRN 01/15/24 01/17/24 History Inhaler] Fluticasone/Umeclidin/Vilanter 1 inhalation INHALATION DAILY 01/15/24 01/17/24 History [Trelegy Ellipta 100-62.5-25] Lutein/Zeaxanthin 1 each PO HS 01/15/24 01/17/24 History [Lutein-Zeaxanthin 20-4 mg Softgel] Allergies Allergy/AdvReac Type Severity Reaction Status Date / Time codeine AdvReac Nausea Verified 01/17/24 08:43 Surgical - Exam Vital Signs Temp Pulse Resp BP Pulse Ox 97.9 F 53 L 18 119/75 96 01/17/24 08:41 01/17/24 08:41 01/17/24 08:41 01/17/24 08:41 01/17/24 08:41
--- NOTE | 2024-01-17 09:36 | P.PCN ---
Date of Procedure: 01/17/24 Description of Procedure: PREOPERATIVE DIAGNOSIS: History of high risk colon adenoma Colonoscopy screening. POSTOPERATIVE DIAGNOSIS: History of high risk colon adenoma Colonoscopy screening. OPERATION: Colonoscopy to the cecum, ileocecal valve and appendiceal orifice. SURGEON: Dinorah Calderon MD. ANESTHESIA: MAC. INDICATIONS: The patient is a 63-year-old female who presents for colonoscopy screening. Her last colonoscopy had over 8 high risk adenomas. Last colonoscopy 5 years. Benefits and risks were described and informed consent was obtained. DESCRIPTION OF PROCEDURE: The patient had undergone Sutab prep. The patient had been brought into the operating room and laid in the left lateral decubitus position. After adequate intravenous sedation, the rectum was examined with 2% lidocaine jelly. No external hemorrhoids were encountered. The rectal tone was within normal limits. No lesions were palpated in the rectal vault. An Olympus colonoscope was advanced until the cecum, ileocecal valve and appendiceal orifice were clearly viewed. The prep was good. No large scattered diverticulosis was encountered. No colonic polyps were found. No evidence of focal colitis was found. Retroflexion of the scope demonstrated grade 1 internal hemorrhoids without active bleeding or inflammation. The colon was desufflated. The patient had tolerated the procedure well. Withdrawal time was over 6 minutes. FINDINGS: Aronchick preparation quality scale 2 (1-5) Internal hemorrhoids, grade 1 No external prolapsed hemorrhoids. No arteriovenous malformations. No adenomatous polyps. No focal colitis. RECOMMENDATIONS: Lower endoscopy in 5 years, 2028 Plan - Discharge Summary Discharge Rx Participant: No New Discharge Prescriptions: Continue HYDROcodone/APAP 5-325MG [[place] 5-325] 1 tab PO DAILY PRN PRN Reason: Pain ALPRAZolam [Xanax] 0.125 mg PO DAILY PRN PRN Reason: sleep Vit C/E/Zn/Coppr/Lutein/Zeaxan [Preservision Areds 2 Softgel] 2 each PO DAILY Vitamin C/Biotin [Hair, Skin and Nails Chew] 1 tab PO DAILY Fluticasone/Umeclidin/Vilanter [Trelegy Ellipta 100-62.5-25] 1 inhalation INHALATION DAILY Lutein/Zeaxanthin [Lutein-Zeaxanthin 20-4 mg Softgel] 1 each PO HS Albuterol Inhaler [Ventolin Hfa Inhaler] 1 puff INHALATION TID PRN PRN Reason: Shortness Of Breath Discharge Medication List ALPRAZolam [Xanax] 0.125 mg PO DAILY PRN 08/13/21 [History] HYDROcodone/APAP 5-325MG [[place] 5-325] 1 tab PO DAILY PRN 08/13/21 [History] Vit C/E/Zn/Coppr/Lutein/Zeaxan [Preservision Areds 2 Softgel] 2 each PO DAILY 08/13/21 [History] Vitamin C/Biotin [Hair, Skin and Nails Chew] 1 tab PO DAILY 08/13/21 [History] Albuterol Inhaler [Ventolin Hfa Inhaler] 1 puff INHALATION TID PRN 01/15/24 [History] Fluticasone/Umeclidin/Vilanter [Trelegy Ellipta 100-62.5-25] 1 inhalation INHALATION DAILY 01/15/24 [History] Lutein/Zeaxanthin [Lutein-Zeaxanthin 20-4 mg Softgel] 1 each PO HS 01/15/24 [History] Follow up Appointment(s)/Referral(s): Dinorah Calderon MD [STAFF PHYSICIAN] - As Needed Patient Instructions/Handouts: Colonoscopy (DC) Activity/Diet/Wound Care/Special Instructions: Repeat colonoscopy 5 years, 2028 Discharge Disposition: HOME SELF-CARE
[2024-01-17 10:08] VITALS: BP 107/68; PULSE 78; RESP 16
== END 2024-01-17 10:05 | disposition home or self-care (01) ==
LOC: ORWHC2ENDO 08:12
PROVIDERS: ATTEND Surgery Plastic and Reconstructive Surgery
DX: K64.0 First degree hemorrhoids (principal); J44.9 Chronic obstructive pulmonary disease, unspecified; K21.9 Gastro-esophageal reflux disease without esophagitis; F32.A Depression, unspecified; F41.9 Anxiety disorder, unspecified; F17.200 Nicotine dependence, unspecified, uncomplicated; M81.0 Age-related osteoporosis without current pathological fracture; W44.F9XA Other object of natural or organic material, entering into or through a natural orifice, initial encounter; Z86.010 Personal history of colon polyps; Z90.710 Acquired absence of both cervix and uterus; Z79.899 Other long term (current) drug therapy; Z88.5 Allergy status to narcotic agent; Z79.51 Long term (current) use of inhaled steroids
CPT/HCPCS: 45378; J2704; J2371

== ENCOUNTER → 2024-04-11 | Outpatient (CLI) | payer BC ==
--- NOTE | 2024-04-12 08:17 | BD ---
EXAMINATION TYPE: Axial Bone Density DATE OF EXAM: 04/11/2024 CLINICAL HISTORY: 63 years old Female. ICD-10 CODE: M85.80 OSTEOPENIA Height: 5 ft 4 in Weight: 121 FRAX RISK QUESTIONS: Alcohol (3 or more units per day): no Family History (Parent hip fracture): yes Glucocorticoids (More than 3mos): yes (Ex: prednisone, prednisolone, methylprednisolone, dexamethasone, and hydrocortisone). History of Fracture in Adulthood: yes Secondary Osteoporosis: 1. Type 1 Diabetes: no 2. Hyperthyroidism: no 3. Menopause before 45: yes 4. Malnutrition: no 5. Chronic liver disease: no Rheumatoid Arthritis: no Current Tobacco Use: yes RISK FACTORS HISTORY OF: Surgery to Spine/Hip(right/left)/Wrist (right/left): no MEDICATIONS: Thyroid Medications: none Osteoporosis Medications: none EXAM MEASUREMENTS: Bone mineral densitometry was performed using the UNI5 System. Bone mineral density as measured about the Lumbar spine is: ----- L1-L4(G/cm2): 1.088 T Score Values are as follows: ----- L1: -1.1 ----- L2: -0.7 ----- L3: -0.3 ----- L4: -1.1 ----- L1-L4: -0.8 Z Score Values are as follows: ----- L1: 0.8 ----- L2: 1.1 ----- L3: 1.6 ----- L4: 0.8 ----- L1-L4: 1.1 Bone mineral density has: increased 12.0 % since study of: 2014 Bone mineral density about the R hip (g/cm2): 0.805 Bone mineral density about the L hip (g/cm2): 0.768 T Score values are as follows: -----R Neck: -1.7 -----L Neck: -1.9 -----R Total: -1.0 -----L Total: -0.7 Z Score values are as follows: -----R Neck: 0.0 -----L Neck: -0.3 -----R Total: 0.4 -----L Total: 0.7 Bone mineral density has: increased 1.2 % since study of: 2021 FRAX%s: The graph provided illustrates a 19.8 % chance for a major osteoporotic fx and a 6.1 % chance for the hips probability for fx in 10 years time. IMPRESSION: Normal (Values between +1 and -1 indicate normal bone mass). Consider repeating this study in 5 year s or sooner if there is some new clinical indication. NOTE: T-SCORE=SD OF THE YOUNG ADULT MEAN. [facility], , 04/12/2024 8:14 AM
== END | disposition home or self-care (01) ==
LOC: RADBDWWP 15:44
PROVIDERS: ATTEND Family Medicine
DX: M85.89 Other specified disorders of bone density and structure, multiple sites (principal)
CPT/HCPCS: 77080

== ENCOUNTER → 2024-09-02 | Outpatient (CLI) | payer BC ==
--- NOTE | 2024-09-02 13:05 | CTL ---
EXAMINATION TYPE: CT Low Dose Lung DATE OF EXAM ORDERED: 09/02/2024 COMPARISON: CT chest 08/30/2023 CLINICAL INDICATION: Female, 63 years old with history of F17.210 nicotine dependence; PHH, 1.5 PPD x 50yrs., Lung cancer screening, History of Smoking/tobacco use. TECHNIQUE: Low dose computed tomography scan was performed through the chest at 1 mm thick sections a nd reconstructed images in multiple planes at 1 mm and [address] DLP: 59.[address] CTDI: 1.5 mGy Automated exposure control for dose reduction was used. CT DIAGNOSTIC QUALITY: Satisfactory FINDINGS: Nodules: No clinically significant pulmonary nodules. LUNGS: COPD: Severity: Moderate to advanced centrilobular emphysematous changes. Fibrosis: Severity: None Lymph nodes: None Other findings: Biapical pleural parenchymal scarring. Linear scarring within medial aspects of both lower lobes. RIGHT PLEURAL SPACE: Effusion: None Calcification: None Thickening: None Pneumothorax: None LEFT PLEURAL SPACE: Effusion: None Calcification: None Thickening: None Pneumothorax: None HEART: Heart Size: Normal Coronary Calcification: None Pericardial Effusion: None OTHER FINDINGS: Upper abdomen: None Bony thorax: Moderate multilevel degenerative disc disease. Stable anterior wedging of the L1 vertebr al body. Supraclavicular region: None Other: None IMPRESSION: 1. No clinically significant pulmonary nodules. 2. Moderate to advanced emphysematous changes. 3. CT LUNG RAD AND CT CHEST RECOMMENDATION: Lung-Rad 1 Negative: Continue annual screening with LDCT in 12 months. S Modifier (other clinically significant findings): None [facility], , 09/02/2024 1:03 PM
== END | disposition home or self-care (01) ==
LOC: RADCTMAIN 12:21
PROVIDERS: ATTEND Internal Medicine Critical Care Medicine
DX: Z12.2 Encounter for screening for malignant neoplasm of respiratory organs (principal); J43.2 Centrilobular emphysema; F17.210 Nicotine dependence, cigarettes, uncomplicated
CPT/HCPCS: 71271

== ENCOUNTER → 2024-09-12 | Outpatient (CLI) | payer BC ==
--- NOTE | 2024-09-13 07:33 | MM ---
Reason for Exam: Screening (asymptomatic). Last screening mammogram was performed 12 month(s) ago. Patient History: Menarche at age 13. Patient has no children. Left ovary removed at age 37. Right ovary removed at age 37. Hysterectomy at age 37. Postmenopausal. Risk Values: Stephani 5 year model risk: 1.6%. NCI Lifetime model risk: 6.6%. Prior Study Comparison: 08/20/2021 Bilateral Screening Mammogram, [facility]. 08/31/2022 Bilateral MG 3D screening mammo w/cad, [facility]. 09/04/2023 Bilateral MG screening mammo w CAD, [facility]. Tissue Density: There are scattered areas of fibroglandular density. Findings: Analyzed By CAD. There is no suspicious group of microcalcifications or new suspicious mass in either breast. Overall Assessment: Negative, BI-RAD 1 Management: Screening Mammogram of both breasts in 1 year. . Patient should continue monthly self-breast exams. A clinical breast exam by your physician is recommended on an annual basis. This exam should not preclude additional follow-up of suspicious palpable abnormalities. Note on Stephani scores and lifetime risk: 1. A Stephani score greater than 3% is considered moderate risk. If this is the case, consider specialist referral to assess eligibility for a risk reducing agent. 2. If overall lifetime risk for the development of breast cancer is 20% or higher, the patient may qualify for future screening with alternating mammogram and breast MRI. [facility], , 09/13/2024 7:30 AM. Electronically signed and approved by: Mj Rosenbaum M.D. Radiologis
== END | disposition home or self-care (01) ==
LOC: RADMAMWWP 15:53
PROVIDERS: ATTEND Family Medicine
DX: Z12.31 Encounter for screening mammogram for malignant neoplasm of breast (principal); R92.323 Mammographic fibroglandular density, bilateral breasts; Z78.0 Asymptomatic menopausal state
CPT/HCPCS: 77067